=== PATIENT | male | born 1960 | race Caucasian/White ===

== ENCOUNTER 2019-06-13 11:05 | Emergency (ER) | payer OTHER ==
[2019-06-13 11:55] LABS: Bilirubin Negative (Negative); Blood, Urine Negative (Negative); Clarity Clear (Clear); Glucose, Urine (Dipstick) Normal (Negative); Leukocyte Negative Leu/uL (Negative); Nitrite Negative (Negative); Protein, Urine (Dipstick) Negative (Neg-Trace); Urobilinogen Normal mg/dL (Less than 2)
== END 2019-06-13 12:36 ==
LOC: ERS 11:05
DX: N32.89 Other specified disorders of bladder (principal)
CPT/HCPCS: 81003; 87086; 99283